=== PATIENT | female | born 1980 | race Two or more races ===

== ENCOUNTER 2017-11-08 21:20 | Observation (INO) | payer MEDICAID, OTHER ==
[~2017-11-08] VITALS: Ht 162.6 cm; Wt 59.4 kg
[2017-11-08] MEDS ORDERED: LACTATED RINGER'S 1,000 ML IV ONE (21:37)
[2017-11-08] MEDS ORDERED: BETAMETHASONE ACET (6MG/ML) 5ML VIAL IM ONE (21:45)
[2017-11-08] MEDS ORDERED: TERBUTALINE SULFATE 1 MG/ML 1ML VIAL SC SCH (21:45)
[2017-11-08] MEDS ORDERED: AMPICILLIN SOD 1 GM VL ONE (21:48)
[2017-11-08] MEDS ORDERED: BETAMETHASONE ACET (6MG/ML) 5ML VIAL ONE (21:48)
[2017-11-08] MEDS ORDERED: TERBUTALINE SULFATE 1 MG/ML 1ML VIAL SC ONE (21:48)
[2017-11-08] MEDS ORDERED: PREN-153 PO (21:48)
[2017-11-09] MEDS ORDERED: SODIUM CHL 0.9% IV SCH ×2
[2017-11-09] MEDS ORDERED: AMPICILLIN IV SCH ×2
== END 2017-11-08 22:20 | disposition left against medical advice (07) | DRG 782 ==
LOC: LDRP 21:20
PROVIDERS: ADMIT Obstetrics & Gynecology; ATTEND Obstetrics & Gynecology
DX: O46.90 Antepartum hemorrhage, unspecified, unspecified trimester (principal); Z3A.00 Weeks of gestation of pregnancy not specified; O09.529 Supervision of elderly multigravida, unspecified trimester
CPT/HCPCS: 59025; G0378; J0290